=== PATIENT | female | born 1965 | race Hispanic/Latino ===

== ENCOUNTER 2018-02-28 09:54 | Inpatient (IN) | payer MEDICARE ==
[~2018-02-28] VITALS: Ht 167.6 cm; Wt 71.8 kg
[2018-02-28 11:51] LABS: APPEARANCE,URINE Clear (CLEAR); BILIRUBIN,URINE Negative (NEGATIVE); COLOR,URINE Yellow (YELLOW); GLUCOSE, URINE (UA) Negative (NEGATIVE); KETONES,URINE Trace mg/dL (NEGATIVE); LEUKOCYTE ESTERASE ,URINE Trace (NEGATIVE); NITRATE,URINE Negative (NEGATIVE); OCCULT BLOOD,URINE Negative (NEGATIVE); PROTEIN,URINE Negative (NEGATIVE); UROBILINOGEN,URINE 0.2 mg/dL (0.2-1.0)
[2018-02-28 11:52] LABS: BASOPHILS % (AUTO) 0.4 % (0.0-5.0); EOSINOPHILS % (AUTO) 0.8 % (0.0-8.0); HEMATOCRIT 43.9 % (36-48); LYMPHOCYTES % (AUTO) 18.6 % (21.0-51.0); MEAN CORPUSCULAR HEMOGLOBIN 30.1 pg (27.0-33.0); MEAN CORPUSCULAR HGB CONC 33.9 g/dL (32.0-36.0); MEAN CORPUSCULAR VOLUME 88.5 fL (79-99); MONOCYTES % (AUTO) 6.6 % (3.0-13.0); NEUTROPHILS % (AUTO) 73.6 % (40.0-77.0); PLATELET COUNT (AUTO) 411 K/uL (130-400); RED BLOOD CELL COUNT(AUTO) 4.96 MIL/uL (4.00-5.50); RED CELL DISTRIBUTION WIDTH 14.2 % (11.0-15.5); WHITE BLOOD COUNT (AUTO) 10.8 K/uL (4.8-10.8)
[2018-02-28 11:53] VITALS: BP 118/70
[2018-02-28 12:09] LABS: INR 0.96 (0.85-1.15); PARTIAL THROMBOPLASTIN TIME 30.9 SEC (26.3-35.5); PROTHROMBIN TIME 10.1 SEC (9.6-11.6)
[2018-02-28 12:19] LABS: BACTERIA,URINE Rare /HPF (None Seen); RBC,URINE None Seen /HPF (0-1); SQUAMOUS EPITHELIAL CELL,UR Rare /HPF (0-2); WBC,URINE 0-1 /HPF (0-1)
[2018-02-28 12:22] LABS: ALBUMIN 3.6 g/dL (3.5-5.0); BILIRUBIN,TOTAL 0.5 mg/dL (0.2-1.0); CREATININE 1.1 mg/dL (0.5-1.5); POTASSIUM 3.5 mmol/L (3.5-5.1); T4 (THYROXINE) 10.1 mcg/dL (4.7-13.3); THYROID STIMULATING HORMONE 4.28 uIU/mL (0.36-3.74); TOTAL PROTEIN, SERUM 8.4 g/dL (6.0-8.3)
[2018-02-28] MEDS ORDERED: HYDR50CA PO (12:29)
[2018-02-28] MEDS ORDERED: OLAN20TA2 PO (12:29)
[2018-02-28] MEDS ORDERED: FLUO20CA30 PO (12:29)
[2018-02-28] MEDS ORDERED: TRAZADONE PO (12:29)
[2018-03-01] VITALS (20 sets, daily range): BP systolic 104–170; BP diastolic 67–114
[2018-03-01] MEDS: CEFAZOLIN SODIUM 1 GM VIAL IVP SCH ×4 (05:00→22:27)
[2018-03-01] MEDS ORDERED: GENTAMICIN 80 MG/NS 100 ML PB 100 ML IV SCH (05:00)
[2018-03-01] MEDS ORDERED: LIDOCAINE PF 2% 5ML ABBOJECT ONE (06:37)
[2018-03-01] MEDS ORDERED: PROPOFOL 10 MG/ML 20ML VIAL IV ONE ×2 (06:37→08:39)
[2018-03-01] MEDS ORDERED: ROPIVACAINE 0.5% 5MG/ML 30ML IJ ONE ×2 (06:38→06:39)
[2018-03-01] MEDS ORDERED: ONDANSETRON HCL 4 MG/2 ML VIAL ONE (06:38)
[2018-03-01] MEDS ORDERED: DEXAMETHASONE SOD PHOSPHATE 10MG/ML 1ML VIAL ONE (06:39)
[2018-03-01] MEDS ORDERED: MIDAZOLAM HCL 1 MG/ML 2ML VIAL ONE (06:40)
[2018-03-01] MEDS ORDERED: FAMOTIDINE/PF 20 MG/2 ML VIAL IV ONE (06:43)
[2018-03-01] MEDS ORDERED: KETAMINE 50MG/ML SYRINGE 50 MG/ML DISP.SYRIN IV ONE (06:44)
[2018-03-01] MEDS ORDERED: LACTATED RINGERS 1000ML 1,000 ML IV ONE (07:11)
[2018-03-01 07:12] LABS: AMPHET/METH SCREEN,URINE NEGATIVE (NEGATIVE); BARBITURATE SCREEN, URINE NEGATIVE (NEGATIVE); BENZODIAZEPINES SCREEN,URINE NEGATIVE (NEGATIVE); CANNABINOID SCREEN,URINE NEGATIVE (NEGATIVE); COCAINE SCREEN,URINE POSITIVE (NEGATIVE); OPIATE SCREEN,URINE NEGATIVE (NEGATIVE); PHENCYCLIDINE SCREEN,URINE NEGATIVE (NEGATIVE)
[2018-03-01] MEDS ORDERED: GLYCOPYRROLATE 0.2 MG/ML 5 ML VIAL ONE (07:25)
[2018-03-01] MEDS ORDERED: HYDROMORPHONE 1 MG/1 ML AMP ONE ×2 (07:25→12:00)
[2018-03-01] MEDS ORDERED: PHENYLEPHRINE HCL 10 MG/ML 1ML VIAL IV ONE (08:42)
[2018-03-01] MEDS ORDERED: FENTANYL CITRATE PF 50 MCG/1 ML 5ML AMP IV ONE (09:05)
[2018-03-01] MEDS ORDERED: MAGNESIUM SULFATE 1 GM/2 ML VIAL ONE (09:15)
[2018-03-01] MEDS ORDERED: NICARDIPINE HCL 25 MG/10 ML ML IV ONE (09:27)
[2018-03-01] MEDS ORDERED: KETOROLAC TROMETHAMINE 30MG/ML ONE ×2 (10:45)
[2018-03-01] MEDS ORDERED: HYDRALAZINE HCL 20 MG/ML VIAL ONE (11:05)
[2018-03-01] MEDS ORDERED: BISACODYL 10 MG SUPP.RECT RC PRN (13:15)
[2018-03-01] MEDS ORDERED: MORPHINE SULFATE 10 MG/ML 1ML SYG IM PRN (13:15)
[2018-03-01] MEDS ORDERED: ACETAMINOPHEN 325 MG TAB PO PRN (13:15)
[2018-03-01] MEDS ORDERED: MORPHINE SULFATE 10 MG/ML 1ML VIAL ONE ×2 (13:33→21:04)
[2018-03-01] MEDS: PROMETHAZINE HCL 25 MG/ML 1ML AMPULE IM PRN ×2 (13:37→21:18)
[2018-03-01] MEDS: GENTAMICIN 80 MG/NS 100 ML PB 100 ML IV SCH (16:27)
[2018-03-01] MEDS: DEXTROSE 5%-LACTATED RINGERS 1,000 ML IV SCH (18:06)
[2018-03-01 18:37] LABS: HEMATOCRIT 35.4 % (36-48)
[2018-03-01] MEDS ORDERED: HYDROXYZINE PAMOATE 50 MG PO PRN (20:48)
[2018-03-01] MEDS: TRAZODONE HCL 100 MG TABLET PO SCH (21:00)
[2018-03-02 00:25] LABS: HEMATOCRIT 30.8 % (36-48)
[2018-03-02 04:28] VITALS: BP 120/60
[2018-03-02] MEDS ORDERED: MORPHINE SULFATE 10 MG/ML 1ML VIAL ONE ×2 (04:47→04:48)
[2018-03-02] MEDS: GENTAMICIN 80 MG/NS 100 ML PB 100 ML IV SCH ×2 (04:52→08:22)
[2018-03-02] MEDS: PROMETHAZINE HCL 25 MG/ML 1ML AMPULE IM PRN (04:52)
[2018-03-02 06:04] LABS: HEMATOCRIT 30.6 % (36-48)
[2018-03-02] MEDS: CEFAZOLIN SODIUM 1 GM VIAL IVP SCH (06:31)
[2018-03-02 07:11] VITALS: BP 133/71
[2018-03-02] MEDS: OLANZAPINE 5 MG TAB PO SCH (08:22)
[2018-03-02] MEDS: LOSARTAN 50 MG TABLET PO SCH (08:23)
[2018-03-02] MEDS: FLUOXETINE HCL 20 MG CAPSULE PO SCH (08:23)
[2018-03-02] MEDS: TRAMADOL /APAP 37.5MG/325MG TAB PO PRN ×3 (08:27→20:04)
[2018-03-02 11:08] VITALS: BP 118/61
[2018-03-02 15:57] VITALS: BP 133/66
[2018-03-02] MEDS: DEXTROSE 5%-LACTATED RINGERS 1,000 ML IV SCH (17:30)
[2018-03-02 20:00] VITALS: BP 139/77
[2018-03-02] MEDS: TRAZODONE HCL 100 MG TABLET PO SCH (20:04)
[2018-03-02] MEDS: ENOXAPARIN SODIUM 40 MG/0.4 ML SYRINGE SQ SCH (20:05)
[2018-03-02] MEDS: MAGNESIUM HYDROXIDE 30 ML/UDCUP PO PRN (20:08)
[2018-03-03] VITALS: BP 122/68
[2018-03-03 04:00] VITALS: BP 139/77
[2018-03-03 04:49] LABS: CREATININE 0.9 mg/dL (0.5-1.5); POTASSIUM 3.8 mmol/L (3.5-5.1)
[2018-03-03 04:55] LABS: HEMATOCRIT 27.6 % (36-48); MEAN CORPUSCULAR VOLUME 88.2 fL (79-99); PLATELET COUNT (AUTO) 213 K/uL (130-400); RED BLOOD CELL COUNT(AUTO) 3.13 MIL/uL (4.00-5.50); WHITE BLOOD COUNT (AUTO) 10.4 K/uL (4.8-10.8)
[2018-03-03] MEDS: TRAMADOL /APAP 37.5MG/325MG TAB PO PRN ×3 (05:07→20:02)
[2018-03-03 08:07] VITALS: BP 127/70
[2018-03-03] MEDS: PANTOPRAZOLE SODIUM 40 MG TABLET.DR PO SCH (08:18)
[2018-03-03] MEDS: LOSARTAN 50 MG TABLET PO SCH (08:18)
[2018-03-03] MEDS: FLUOXETINE HCL 20 MG CAPSULE PO SCH (08:18)
[2018-03-03] MEDS: ENOXAPARIN SODIUM 40 MG/0.4 ML SYRINGE SQ SCH ×2 (08:19→20:03)
[2018-03-03] MEDS: OLANZAPINE 5 MG TAB PO SCH (10:56)
[2018-03-03 11:34] VITALS: BP 120/70
[2018-03-03 16:22] VITALS: BP 135/79
[2018-03-03 16:28] LABS: % IRON SATURATION 5.4 % (22-44)
[2018-03-03] MEDS ORDERED: EPOETIN ALFA 10,000 UNIT/ML VIAL SQ SCH (17:00)
[2018-03-03] MEDS: DEXTROSE 5%-LACTATED RINGERS 1,000 ML IV SCH (17:30)
[2018-03-03] MEDS ORDERED: COMPOUND IV MISC 1 EACH IVSOLN MISC PRN (17:30)
[2018-03-03 20:00] VITALS: BP 135/71
[2018-03-03] MEDS: TRAZODONE HCL 100 MG TABLET PO SCH (20:02)
[2018-03-03] MEDS: MAGNESIUM HYDROXIDE 30 ML/UDCUP PO PRN (20:02)
[2018-03-03] MEDS: IRON SUCROSE COMPLEX 100 MG in SODIUM CHLORIDE 0.9% 50 ML IV SCH (20:10)
[2018-03-04 00:20] VITALS: BP 121/69
[2018-03-04 04:00] VITALS: BP 133/81
[2018-03-04 06:07] LABS: HEMATOCRIT 27.7 % (36-48); MEAN CORPUSCULAR HEMOGLOBIN 30.1 pg (27.0-33.0); MEAN CORPUSCULAR HGB CONC 33.9 g/dL (32.0-36.0); MEAN CORPUSCULAR VOLUME 88.8 fL (79-99); PLATELET COUNT (AUTO) 251 K/uL (130-400); RED BLOOD CELL COUNT(AUTO) 3.12 MIL/uL (4.00-5.50); RED CELL DISTRIBUTION WIDTH 14.1 % (11.0-15.5); WHITE BLOOD COUNT (AUTO) 11.4 K/uL (4.8-10.8)
[2018-03-04 06:20] LABS: CREATININE 0.9 mg/dL (0.5-1.5); POTASSIUM 4.3 mmol/L (3.5-5.1)
[2018-03-04] MEDS: TRAMADOL /APAP 37.5MG/325MG TAB PO PRN (06:50)
[2018-03-04 07:30] VITALS: BP 123/79
[2018-03-04] MEDS: OLANZAPINE 5 MG TAB PO SCH (09:48)
[2018-03-04] MEDS: FLUOXETINE HCL 20 MG CAPSULE PO SCH (09:48)
[2018-03-04] MEDS: IRON SUCROSE COMPLEX 100 MG in SODIUM CHLORIDE 0.9% 50 ML IV SCH (09:49)
[2018-03-04] MEDS: ENOXAPARIN SODIUM 40 MG/0.4 ML SYRINGE SQ SCH (09:49)
[2018-03-04] MEDS: PANTOPRAZOLE SODIUM 40 MG TABLET.DR PO SCH (09:49)
[2018-03-04] MEDS: LOSARTAN 50 MG TABLET PO SCH (09:49)
[2018-03-04] MEDS ORDERED: SODIUM CHLORIDE 0.9% 50 ML IV ONE (09:57)
[2018-03-04 11:00] VITALS: BP 100/57
[2018-03-04] MEDS ORDERED: APIX5TAB PO (15:11)
[2018-03-04] MEDS ORDERED: TRAM1TAB PO (15:11)
[2018-03-04 16:00] VITALS: BP 112/59
== END 2018-03-04 18:45 | disposition home or self-care (01) | DRG 470 ==
LOC: EDSTATUS 12:00 → DAHIP 03-01 06:18 → 4AH 03-01 12:26
PROC: 0SRD0JA Replacement of Left Knee Joint with Synthetic Substitute, Uncemented, Open Approach (ICD-10-PCS; principal; 2018-03-01 08:25)
DX: M17.12 Unilateral primary osteoarthritis, left knee (principal); I10 Essential (primary) hypertension; E78.5 Hyperlipidemia, unspecified; M12.562 Traumatic arthropathy, left knee; D50.9 Iron deficiency anemia, unspecified; F31.9 Bipolar disorder, unspecified; F43.10 Post-traumatic stress disorder, unspecified; Z79.01 Long term (current) use of anticoagulants; Z96.651 Presence of right artificial knee joint; F14.90 Cocaine use, unspecified, uncomplicated; M21.162 Varus deformity, not elsewhere classified, left knee
CPT/HCPCS: 36415; 71045; 73560; 80048; 80053; 80305; 81001; 83540; 83550; 84436; 84443; 85014; 85018; 85025; 85027; 85610; 85730; 86592; 86850; 86900; 86901; 86922; 88300; 88304; 88305; 88311; 93005; 94760; A4218; A4606; G0008; J0360; J0690; J0885; J1100; J1170; J1580; J1650; J1756; J1885; J2001; J2250; J2270; J2370; J2405; J2550; J2704; J2795; J3010; J3475; J3490; J7120; Q2038

== ENCOUNTER 2022-01-21 06:04 | Day surgery (SDC) | payer OTHER, MEDICARE ==
[2022-01-19 09:07] LABS: BASOPHILS % (AUTO) 0.7 % (0.0-5.0); EOSINOPHILS % (AUTO) 1.7 % (0.0-8.0); HEMATOCRIT 41.9 % (36-48); LYMPHOCYTES % (AUTO) 35.1 % (21.0-51.0); MEAN CORPUSCULAR HEMOGLOBIN 28.8 pg (27.0-33.0); MEAN CORPUSCULAR HGB CONC 33.2 g/dL (32.0-36.0); MEAN CORPUSCULAR VOLUME 86.7 fL (79-99); MONOCYTES % (AUTO) 9.5 % (3.0-13.0); NEUTROPHILS % (AUTO) 52.1 % (40.0-77.0); PLATELET COUNT (AUTO) 347 K/uL (130-400); RED BLOOD CELL COUNT(AUTO) 4.83 MIL/uL (4.00-5.50); RED CELL DISTRIBUTION WIDTH 13.2 % (11.0-15.5); WHITE BLOOD COUNT (AUTO) 9.9 K/uL (4.8-10.8)
[2022-01-19 09:17] LABS: ALBUMIN 3.6 g/dL (3.5-5.0); CREATININE 1.1 mg/dL (0.5-1.5); CRP QUANTITATIVE 14.9 mg/L (0.00-9.0); POTASSIUM 4.3 mmol/L (3.5-5.1)
[2022-01-20 11:59] VITALS: BP 124/80
[~2022-01-21] VITALS: Ht 167.6 cm; Wt 91.1 kg
[2022-01-21] VITALS (16 sets, daily range): BP systolic 119–178; BP diastolic 74–97
[2022-01-21] MEDS: CEFAZOLIN SODIUM 1 GM VIAL IVP SCH ×2 (06:00→07:23)
[~2022-01-21 06:04] MED LIST: FLUO20CA30 PO; IBUP-2784 PO; ICOS1CAP2 PO; LEVO25CA4 PO; OLAN20TA2 PO; OMEP20TA20 PO; ROSU20TA31 PO; TRAM50TA4 PO; TRAZADONE PO
[2022-01-21] MEDS ORDERED: LACTATED RINGERS 1000ML 1,000 ML IV ONE (06:21)
[2022-01-21] MEDS ORDERED: HYD50 PO (06:56)
[2022-01-21] MEDS ORDERED: ONDANSETRON 4MG INJ ONE (07:08)
[2022-01-21] MEDS ORDERED: DEXAMETHASONE SOD PHOSPHATE 10MG/ML 1ML VIAL ONE (07:08)
[2022-01-21] MEDS ORDERED: PROPOFOL 10 MG/ML 20ML VIAL IV ONE (07:08)
[2022-01-21] MEDS ORDERED: MIDAZOLAM HCL 1 MG/ML 2ML VIAL ONE (07:08)
[2022-01-21] MEDS ORDERED: SUCCINYLCHOLINE 200MG/10ML SYR ONE (07:08)
[2022-01-21] MEDS ORDERED: FENTANYL CITRATE PF 50 MCG/1 ML 2ML VIAL ONE (07:09)
[2022-01-21] MEDS ORDERED: ACET-2079 PO (08:21)
[2022-01-21] MEDS ORDERED: KETOROLAC 30MG VIAL (30MG/ML) ONE (08:22)
== END 2022-01-21 09:50 | disposition home or self-care (01) ==
LOC: DAH 06:04
PROVIDERS: ATTEND Student in an Organized Health Care Education/Training Program
DX: T84.84XA Pain due to internal orthopedic prosthetic devices, implants and grafts, initial encounter (principal); M19.172 Post-traumatic osteoarthritis, left ankle and foot; G89.29 Other chronic pain; F41.9 Anxiety disorder, unspecified; F31.9 Bipolar disorder, unspecified; Z98.890 Other specified postprocedural states; Y83.8 Other surgical procedures as the cause of abnormal reaction of the patient, or of later complication, without mention of misadventure at the time of the procedure
CPT/HCPCS: 82040; 80048; 85025; 84134; 86140; 87426; 36415; 20680; 73610; A4663; J7120; J3010; J0690; J0330; J1100; J2250; J2704; J2405; J1885; A6223; A5120; A4215; A4223; A4222; A4221